=== PATIENT | female | born 1970 | race Caucasian/White ===

== ENCOUNTER 2018-12-16 19:42 | Emergency (ER) | payer OTHER ==
[~2018-12-16] VITALS: Ht 162.6 cm; Wt 63.5 kg
[2018-12-16 19:47] VITALS: BP 145/93; PULSE 89; RESP 18; Ht 162.6 cm; Wt 63.5 kg
[2018-12-16] MEDS ORDERED: KETOROLAC 60 MG INJ IM STA (21:04)
[2018-12-16] MEDS ORDERED: OXYC-279 PO (21:22)
[2018-12-16] MEDS ORDERED: IBUP-1542 PO (21:22)
[2018-12-16] MEDS ORDERED: OXYCODONE/ACETAMINOPHEN (5/325) TAB PO ONE (21:30)
--- NOTE | 2018-12-17 01:50 | ERD ---
ER Documentation Chief Complaint Chief Complaint left lower tootache x 4 days HPI 48-year-old female presents with complaint of toothache on the lower left side. States that spent going on since past . Her dentist is going to do a procedure in the next couple days in the meantime she is in tremendous amount of pain. States that her dentist gave her Vicodin but has not been helping with the pain. Last time she took a Vicodin was 6 hours ago. States she is allergic to codeine. Allergic to penicillins. Denies fevers, chills, trismus, masses. ROS All systems reviewed and are negative except as per history of present illness. Medications Home Meds Active Scripts Ibuprofen* (Motrin*) 600 Mg Tab, 600 MG PO Q6 for pain, #30 TAB Prov:BRIANA ORTA 12/16/18 Oxycodone HCl/Acetaminophen (Percocet 5-325 mg Tablet) 1 Each Tablet, 1 EACH PO Q6 for pain, #10 TAB Prov:BRIANA ORTA 12/16/18 Allergies Allergies: Coded Allergies: Penicillins (Verified Allergy, Unknown, 12/16/18) codeine (Verified Allergy, Unknown, 12/16/18) PMhx/Soc Medical and Surgical Hx: pt denies Medical Hx, pt denies Surgical Hx Hx Alcohol Use: No Hx Substance Use: No Hx Tobacco Use: No Smoking Status: Never smoker FmHx Family History: No diabetes, No coronary disease, No other Physical Exam Vitals Vital Signs Date Temp Pulse Resp B/P (MAP) Pulse Ox O2 O2 Flow FiO2 Time Delivery Rate 12/16/18 98.3 89 18 145/93 100 19:47 (110) Physical Exam Const: No acute distress Head: Atraumatic Eyes: Normal Conjunctiva ENT: Normal External Ears, Nose and Mouth. No periapical masses noted. There is no bleeding. General oral mucosa is pink without any lesions. Neck: Full range of motion. No meningismus. Resp: Clear to auscultation bilaterally Cardio: Regular rate and rhythm, no murmurs Abd: Soft, non tender, non distended. Normal bowel sounds Skin: No petechiae or rashes Back: No midline or flank tenderness Ext: No cyanosis, or edema Neur: Awake and alert Psych: Normal Mood and Affect Results 24 hrs Laboratory Tests Test 12/16/18 21:22 POC Beta HCG, Qualitative NEGATIVE Current Medications Medications Dose Sig/Olimpia Start Time Status Last (Trade) Ordered Route PRN Stop Time Admin Dose Reason Admin Oxycodone/ 1 tab ONCE ONCE 12/16/18 DC 12/16/18 Acetaminophen PO 21:30 12/16/18 21:33 (Percocet 21:31 (5/ 325)) Ketorolac 60 mg ONCE STAT 12/16/18 DC 12/16/18 Tromethamine IM 21:04 12/16/18 21:33 (Toradol) 21:06 Procedures/MDM MDM: Patient was given Percocet in the area due to the complaint that the Vicodin has not been working. Patient was discharged with short course of Percocet and ibuprofen. Patient was advised that her dentist is the one who needs to manage her pain and she would need to follow-up with him. Low suspicion for acute space infection, periapical abscess, or any other emergent condition. Patient discharged with strict ER precautions. Patient advised to follow up with PMD. All questions answered at discharge. Departure Diagnosis: Primary Impression: Toothache Condition: Stable Patient Instructions: Dental Pain Referrals: [facility], [facility] YOU HAVE RECEIVED A MEDICAL SCREENING EXAM AND THE RESULTS INDICATE THAT YOU DO NOT HAVE A CONDITION THAT REQUIRES URGENT TREATMENT IN THE EMERGENCY DEPARTMENT. FURTHER EVALUATION AND TREATMENT OF YOUR CONDITION CAN WAIT UNTIL YOU ARE SEEN IN YOUR DOCTORS OFFICE WITHIN THE NEXT 1-2 DAYS. IT IS YOUR RESPONSIBILITY TO MAKE AN APPOINTMENT FOR FOLOW-UP CARE. IF YOU HAVE A PRIMARY DOCTOR --you should call your primary doctor and schedule an appointment IF YOU DO NOT HAVE A PRIMARY DOCTOR YOU CAN CALL OUR PHYSICIAN REFERRAL HOTLINE AT IF YOU CAN NOT AFFORD TO SEE A PHYSICIAN YOU CAN CHOSE FROM THE FOLLOWING [facility], [facility] [address] [facility] [address] [facility] [address] [facility] [address] [facility]. [facility] [address]. [facility]. [address] Additional Instructions: FOLLOW UP WITH YOUR PRIMARY CARE PHYSICIAN TOMORROW.Return to this facility if you are not improving as expected. BRIANA ORTA December 17, 2018 01:50
== END 2018-12-16 21:40 | disposition home or self-care (01) ==
LOC: FTE 19:42
DX: K08.89 Other specified disorders of teeth and supporting structures (principal)
CPT/HCPCS: 81025; 96372; J1885; Z7502; Z7610